=== PATIENT | female | born 1950 | race Caucasian/White ===

== ENCOUNTER → 2016-11-11 | Day surgery (SDC) | payer BC ==
[~2016-11-11] MED LIST: ACTONEL PO; ACTONEL150 MG PO; ANEXSIA 7.5/3251 TA1 PO; ASPIRIN PO; ASPIRIN81 M2 PO; AZO BLADDER CO300 MG PO; CALCIUM + D 6001 TA1 PO; CALCIUM 500 + D1 TAB PO; CALCIUM 600 +1 EAC1 PO; CENTRUM SILVER PO; CENTRUM SILVER1 EAC3 PO; CETIRIZINE HCL10 MG PO; CHOND; CO Q-10200 MG PO; CRANBERRY CONC300 MG PO; CRANBERRY450 M1 PO; DEXFOL PO; FISH OIL 1,0001 CAP PO; FISH OIL 1,2001 CAP PO; FLAX SEED OIL1000 M2 PO; FLAX SEED OIL1000 MG PO; GLUCOS; HYDROCODON-ACE1 EAC9 PO; OSTEO BI-FLEX1 EAC1 PO; OSTEO BI-FLEX1 EAC3 PO; OXYTROL1 PATCH.BW TOP; PERCOCET 5-3251 TAB PO; PERCOCET5/325 PO; PHENERGAN25 M1 PO; POTASSIUM GLUCONATE PO; TAMOXIFEN CITRA20 MG PO; VICODIN PO; VIT E PO; VITAMIN C PO; VITAMIN C W/RO500 MG PO; VITAMIN C500 M5 PO; ZANAFLEX4 M1 PO; ZINC50 M1 PO
--- NOTE | ~2016-11-11 | OR ---
Unit #: [id number] #: [id number] Patient: SHIRA SMILEY [id number] [address] [place], [place] [address] [id number] MR#: [id number] NAME: SHIRA SMILEY ROOM: Date of Procedure: 11/11/2016 Admission Date: 11/11/2016 Surgeon: Carrillo Beltran M.D. : 1950 Attending Physician: Carrillo Beltran M.D. Primary Care Physician: Charley Childers M.D. OPERATIVE REPORT PREOPERATIVE DIAGNOSIS Colorectal cancer screening in an average-risk patient. PROCEDURES PERFORMED 1. Colonoscopy and polypectomy. 2. Colonoscopy and biopsies. POSTOPERATIVE DIAGNOSES 1. The patient has single sessile polyp in the proximal descending colon. This was about 1.2 to 1.4 cm in size. It was removed using snare polypectomy. 2. The patient had benign appearing ulcer on the ileocecal valve. This was about 8 mm in size. The edges of the ulcer were biopsied. The most likely etiology of this ulcer is NSAID usage. 3. The patient had moderately severe diffuse pandiverticulosis. 4. Rest of the examination up to cecum and terminal ileum was normal. RECOMMENDATIONS 1. We will follow up the results of polyp histology. 2. Follow up the results of biopsies taken from the cecal ulcer. 3. The patient will require a repeat colonoscopy in 5 years. SEDATION USED MAC. DESCRIPTION OF PROCEDURE Following detailed explanation of the potential risks and complications of a colonoscopy, namely perforation, bleeding, and complication related to sedation, the patient was brought to GI lab and laid in the left lateral decubitus position. A digital rectal examination was performed which was normal. Lubricated tip of the Olympus video colonoscope was inserted through the anus and advanced under direct vision. The scope was advanced past rectosigmoid into descending colon. Multiple and extensive diverticula were seen throughout in this area. The scope tip was then navigated all the way up to cecum with visualization of the ileocecal valve and the appendiceal orifice. Preparation was excellent with good visualization and photodocumentation was obtained. The area of the ileocecal valve had a localized single ulcer, it was about 8 mm in size. The overall appearance is that of benign ulcer most likely from NSAID usage. The edges of the ulcer were biopsied and sent for histology. Successive segments of the colonic mucosa were examined upon withdrawal. The patient was noted to have evidence of extensive pandiverticulosis. In Unit #: [id number] #: [id number] Patient: SHIRA SMILEY addition, a single sessile polyp about 1.2 to 1.4 cm in size was seen in the proximal descending colon. This was removed using snare cautery polypectomy. The polyp was retrieved and sent for histology. No additional polyps were noted. Other than the extensive diverticula, no other abnormalities were found. The patient did not have any hemorrhoids at the anal verge. The scope was then withdrawn and the patient returned to the recovery area. She tolerated the procedure without any postprocedure complications. Dictated by... Israel Lopez/douglas TD: 11/12/2016 01:43 JOB #: [id number] OPERATIVE REPORT Page 1 of 1 X Carrillo Beltran MD X PROCEDURE OPERATIVE NOTE
== END | disposition home or self-care (01) ==
LOC: COPS 10:00
DX: Z12.11 Encounter for screening for malignant neoplasm of colon (principal); K63.5 Polyp of colon; K61.2 Anorectal abscess; K62.89 Other specified diseases of anus and rectum; K57.30 Diverticulosis of large intestine without perforation or abscess without bleeding; Z85.3 Personal history of malignant neoplasm of breast; Z88.1 Allergy status to other antibiotic agents; Z88.2 Allergy status to sulfonamides; Z88.8 Allergy status to other drugs, medicaments and biological substances; Z79.82 Long term (current) use of aspirin; Z79.899 Other long term (current) drug therapy; Z90.710 Acquired absence of both cervix and uterus; Z98.51 Tubal ligation status; Z98.890 Other specified postprocedural states
CPT/HCPCS: 88305; J2250